=== PATIENT | female | born 1975 | race Caucasian/White ===

== ENCOUNTER 2023-01-04 13:42 | Emergency (ER) | payer SELFPAY ==
[~2023-01-04] VITALS: Ht 157.5 cm; Wt 72.6 kg
[2023-01-04] MEDS ORDERED: DEXAMETHASONE SOD PHOS 10 MG/1 ML VIAL IM ONE (15:00)
[2023-01-04] MEDS ORDERED: AZITHROMYCIN250 MG PO (16:01)
[2023-01-04] MEDS ORDERED: MEDROL4 M2 PO (16:01)
== END 2023-01-04 16:11 | disposition home or self-care (01) ==
LOC: ER 13:57
DX: R06.02 Shortness of breath (principal); J40 Bronchitis, not specified as acute or chronic; R05.9 Cough, unspecified
CPT/HCPCS: 71045; 99283; J1100